=== PATIENT | female | born 1990 | race Caucasian/White ===

== ENCOUNTER 2017-05-14 07:30 | Day surgery (SDC) | payer MEDICAID ==
[2017-05-14] MEDS ORDERED: LR 1,000 ML IV ONE (07:43)
--- NOTE | 2017-05-14 08:04 | PDGENHP ---
History & Physical Chief Complaint: Nausea, vomiting, rectal bleeding Relevant Physical Exam: GEN: NAD. Cardiac: RRR. Lungs: CTA B. Abd: Soft, nt, nd
[2017-05-14] MEDS ORDERED: LIDOCAINE 2% 5 ML SDV ONE (09:09)
[2017-05-14] MEDS ORDERED: PROPOFOL/EMULSION 500 MG/50 ML BOTTLE IV ONE (09:09)
[2017-05-14] MEDS ORDERED: MIDAZOLAM 2 MG/2 ML VIAL ONE (09:09)
--- NOTE | 2017-05-14 09:09 | PDANEPAE ---
ANE History of Present Illness gastritis, rectal bleeding ANE Past Medical History - Cardiovascular History Hx Hypertension: No Hx Arrhythmias: No Hx Chest Pain: No Hx Coronary Artery / Peripheral Vascular Disease: No Hx CHF / Valvular Disease: No Hx Palpitations: No - Pulmonary History Hx COPD: No Hx Asthma/Reactive Airway Disease: No Hx Recent Upper Respiratory Infection: No Hx Oxygen in Use at Home: No Hx Sleep Apnea: No Sleep Apnea Screening Result - Last Documented: Negative Pulmonary History Comment: quit smoking 2-3 cigs in - Neurologic History Hx Cerebrovascular Accident: No Hx Seizures: No Hx Dementia: No - Endocrine History Hx Diabetes: No Obesity: no - Renal History Hx Renal Disorders: No - Liver History Hx Hepatic Disorders: No - Neurological & Psychiatric Hx Hx Neurological and Psychiatric Disorders: Yes Neurological / Psychiatric History Comment: depression,anxiety - Cancer History Hx Cancer: No - Congenital Disorder History Hx Congenital Disorders: No - GI History GERD: moderate Hx Gastrointestinal Disorders: Yes Gastrointestinal History Comment: suspected stomach ulcer, heartburn x 3 years, pain lasting for few months. Existing hemorrhoid and some rectal bleeding. - Other Health History Other Health History: chronic eczema - Chronic Pain History Chronic Pain: No - Surgical History Prior Surgeries: R ACL repair-2009 ANE Review of Systems Review of systems is: negative Review of Systems: - Exercise capacity METS (RN): 4 METS ANE Patient History - Allergies Allergies/Adverse Reactions: No Known Allergies Allergy (Unverified 04/30/17 11:41) - Home Medications Home medications: home medication list seen and reviewed Home Medications: Dupixent 04/30/17 [Last Taken 05/02/17] Melatonin 04/30/17 [Last Taken 05/11/17] Shira-Be 04/30/17 [Last Taken 05/14/17] Omeprazole 04/30/17 [Last Taken 05/12/17] Sertraline HCl 04/30/17 [Last Taken 05/12/17] - NPO status NPO Since - Liquids (Date): 05/14/17 NPO Since - Liquids (Time): 06:00 NPO Since - Solids (Date): 05/13/17 NPO Since - Solids (Time): 09:00 - Anes Hx Anes Hx: no prior problems - Smoking Hx Smoking Status: Former smoker ANE Labs/Vital Signs - Vital Signs Blood Pressure: 120/69 Heart Rate: 72 Respiratory Rate: 14 O2 Sat (%): 95 Height: 162.56 cm Weight: 71.668 kg ANE Physical Exam - Airway Neck exam: FROM Mallampati Score: Class 1 Mouth exam: normal dental/mouth exam - Pulmonary Pulmonary: no respiratory distress - Cardiovascular Cardiovascular: regular rate and rhythym - ASA Status ASA Status: II ANE Anesthesia Plan Anesthesia Plan: GA with mask Urgent/Emergent Case: Paris cordero completed preop but documented later for safe timely pt care
[2017-05-14] MEDS ORDERED: LR 500 ML IV PRN (09:48)
[2017-05-14] MEDS ORDERED: NALOXONE HCL 0.4 MG/ML INJ IVP PRN (09:48)
[2017-05-14] MEDS ORDERED: ACETAMINOPHEN 500 MG TAB PO PRN (09:48)
[2017-05-14] MEDS ORDERED: ONDANSETRON 4 MG/2 ML VIAL IVP PRN (09:48)
[2017-05-14] MEDS ORDERED: OXYCODONE/APAP 5/325 TAB PO PRN (09:48)
[2017-05-14] MEDS ORDERED: ALBUTEROL 3 ML DEYVIAL IH PRN (09:48)
--- NOTE | 2017-05-14 09:49 | POSTANESTH ---
Post Anesthetic Evaluation Cardiovascular Status: Normal, Stable Respiratory Status: Normal, Stable Level of Consciousness/Mental Status: Can Participate in Eval Pain Control: Adequate, Prn Tx Ordered Nausea/Vomiting Control: Adequate, Prn Tx Ordered Complications Possibly Related to Anesthesia: None Noted
--- NOTE | 2017-05-14 10:07 | GIREPORT ---
[facility] Surgical Services - Endoscopy Department Patient Name: Jacki Manning Procedure Date: 05/14/2017 9:37 AM Patient Type: Outpatient Attending / ER Physician: Brent Payne MD Procedure: Upper GI endoscopy Indications: Heartburn Providers: Brent Payne MD Medicines: Monitored Anesthesia Care Complications: No immediate complications. Description of Procedure: After obtaining informed consent, the endoscope was passed under direct vision. Throughout the procedure, the patient's blood pressure, pulse, and oxygen saturations were monitored continuously. The Endoscope was intro duced through the mouth, and advanced to the second part of duodenum. [facility] GI endoscopy was accomplished without difficulty. The patient tolerated th e procedure well. Findings: The examined esophagus was normal. The Z-line was regular and was found 38 cm from the incisors. No eviden ce of Pryor's esophagus. Localized minimal inflammation characterized by erythema was found on t he greater curvature of the stomach. Biopsies were taken with a cold force ps for histology. Verification of patient identification for the specimen was done by the physician and nurse using the patient's name and date . Estimated blood loss was minimal. The examined duodenum was normal. Biopsies were taken with a cold force ps for histology. Verification of patient identification for the specimen was done by the physician and nurse using the patient's name and date . Estimated blood loss was minimal. Estimated Blood Loss: Estimated blood loss: none. Post Op Diagnosis: - Normal esophagus. - Z-line regular, 38 cm from the incisors. - Gastritis. Biopsied. - Normal examined duodenum. Biopsied. Recommendation: - Discharge patient to home (with escort) after the colonoscopy is comp leted. - Resume previous diet. - Continue present medications. Continue Prilosec 20mg orally daily. - Your pathology results are available within 10 days. - Thank you for allowing me to participate in the care of your patient. Attending Participation: I personally performed the entire procedure. Brent Payne MD Brent Payne MD 05/14/2017 10:06:31 AM Number of Addenda: 0 Note Initiated On: 05/14/2017 9:37 AM Total Procedure Duration Time 0 hours 3 minutes 43 seconds [email or web address]
--- NOTE | 2017-05-14 10:10 | GIREPORT ---
[facility] Surgical Services - Endoscopy Department Patient Name: Jacki Manning Procedure Date: 05/14/2017 9:47 AM Patient Type: Outpatient Attending / JESSI Physician: Brent Payne MD Procedure: Colonoscopy Indications: Hematochezia Providers: Brent aPyne MD Medicines: Monitored Anesthesia Care Complications: No immediate complications. Description of Procedure: After obtaining informed consent, the scope was passed under direct vis ion. Throughout the procedure, the patient's blood pressure, pulse, and oxyg en saturations were monitored continuously. The Colonoscope with irrigatio n channel was introduced through the anus and advanced to the terminal il eum, with identification of the appendiceal orifice and IC valve. The colono scopy was performed without difficulty. The patient tolerated the procedure w ell. The quality of the bowel preparation was good. Findings: The perianal and digital rectal examinations were normal. The terminal ileum appeared normal. The colon (entire examined portion) appeared normal. The retroflexed view of the distal rectum and anal verge was normal and showed no anal or rectal abnormalities. Estimated Blood Loss: Estimated blood loss: none. Post Op Diagnosis: - The examined portion of the ileum was normal. - The entire examined colon is normal. - The distal rectum and anal verge are normal on retroflexion view. - No specimens collected. - No findings to explain rectal bleeding. Recommendation: - Discharge patient to home (with escort). - Resume previous diet. High fiber diet/ avoidance of constipation. - Continue present medications. - Repeat colonoscopy at age 48 for screening purposes. - Thank you for allowing me to participate in the care of your patient. Attending Participation: I personally performed the entire procedure. Brent Payne MD Brent Payne MD 05/14/2017 10:09:50 AM Number of Addenda: 0 Note Initiated On: 05/14/2017 9:47 AM Total Procedure Duration Time 0 hours 9 minutes 14 seconds [email or web address]
[2017-05-14 10:15] VITALS: O2SAT 98
[2017-05-14 10:56] VITALS: TEMP 97.3
[2017-05-14 11:09] VITALS: BP 118/68; RESP 15
[2017-05-14 11:11] VITALS: PULSE 63
== END 2017-05-14 11:30 | disposition home or self-care (01) ==
LOC: FSGY 07:30
PROVIDERS: ATTEND Internal Medicine Gastroenterology
PROC: 0DB68ZX Excision of Stomach, Via Natural or Artificial Opening Endoscopic, Diagnostic (ICD-10-PCS; principal; 2017-05-14 09:30)
PROC: 0DJD8ZZ Inspection of Lower Intestinal Tract, Via Natural or Artificial Opening Endoscopic (ICD-10-PCS; principal; 2017-05-14 09:30)
PROC: 0DB98ZX Excision of Duodenum, Via Natural or Artificial Opening Endoscopic, Diagnostic (ICD-10-PCS; principal; 2017-05-14 09:30)
DX: K29.70 Gastritis, unspecified, without bleeding (principal); K92.1 Melena
CPT/HCPCS: J2250; J2704

== ENCOUNTER → 2018-01-28 | Outpatient (CLI) | payer MEDICAID | LOC: BMCIMAGING 14:13 | PROVIDERS: ATTEND Internal Medicine | DX: N83.201 Unspecified ovarian cyst, right side (principal) ==